=== PATIENT | male | born 2000 | race Caucasian/White ===

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

== ENCOUNTER → 2020-01-14 | Outpatient (CLI) | payer OTHER ==
[2020-01-14 19:46] LABS: BASO # 0.1 10^3/uL (0.0-0.2); BASO % 0.7 % (0.0-1.0); HEMATOCRIT 51.3 % (42.0-52.0); HEMOGLOBIN 17.5 g/dl (13.5-17.5); LYMPH # 2.3 10^3/uL (1.5-5.0); LYMPH % 33.1 % (24.0-44.0); MEAN CORPUSCULAR HEMOGLOBIN 32.1 pg (27.0-33.0); MEAN CORPUSCULAR HGB CONC 34.1 g/dl (32.0-36.5); MEAN CORPUSCULAR VOLUME 94.1 fl (80.0-96.0); MONO # 0.4 10^3/uL (0.0-0.8); NEUTROPHILS # 4.2 10^3/uL (1.5-8.5); NEUTROPHILS % 60.1 % (36.0-66.0); PLATELET COUNT, AUTOMATED 283 10^3/uL (150-450); RED BLOOD COUNT 5.45 10^6/uL (4.30-6.10)
== END ==
LOC: M WUC 15:10
PROVIDERS: ATTEND Family Medicine
DX: K05.10 Chronic gingivitis, plaque induced (principal); B37.9 Candidiasis, unspecified

== ENCOUNTER → 2020-10-01 | Outpatient (REF) | payer OTHER | LOC: M LAB REF 18:27 | PROVIDERS: ATTEND Physician Assistant | DX: R30.0 Dysuria (principal); Z20.2 Contact with and (suspected) exposure to infections with a predominantly sexual mode of transmission ==

== ENCOUNTER → 2020-10-29 | Outpatient (REF) | payer OTHER ==
[2020-10-29 20:05] LABS: GC DNA AMPLIFICATION NEGATIVE (NEGATIVE)
== END ==
LOC: M LAB REF 17:51
PROVIDERS: ATTEND Nurse Practitioner Family
DX: R30.0 Dysuria (principal); Z20.2 Contact with and (suspected) exposure to infections with a predominantly sexual mode of transmission

== ENCOUNTER → 2020-12-06 | Outpatient (REF) | payer OTHER ==
[2020-12-06 17:57] LABS: GC DNA AMPLIFICATION NEGATIVE (NEGATIVE)
== END ==
LOC: M WUC 15:37
PROVIDERS: ATTEND Physician Assistant
DX: R30.0 Dysuria (principal); N50.819 Testicular pain, unspecified

== ENCOUNTER → 2020-12-20 | Outpatient (CLI) | payer OTHER ==
--- NOTE | 2020-12-20 08:55 | REP ---
INDICATION: RT TESTICULAR PAIN COMPARISON: None. TECHNIQUE: Rodriguez scale and color Doppler evaluation using linear and curved array transducer with color Doppler evaluation. FINDINGS: The testicles and epididymi are relatively normal in contour, size, echogenicity, vascularity and overall appearance. There is no evidence for intratesticular mass lesion, infectious/inflammatory process, or torsion. No obvious hydroceles or varicoceles are identified. Right testicle measures 2.8 x 2.2 x 4.8 cm. Left testicle measures 3.3 x 2.4 x 5.2 cm. IMPRESSION: Essentially normal scrotal ultrasound. <Electronically signed by Dipesh Zhou > 12/20/20 [id number]
== END ==
LOC: M RAD 07:56
PROVIDERS: ATTEND Family Medicine
DX: N50.811 Right testicular pain (principal)

== ENCOUNTER → 2021-01-02 | Outpatient (CLI) | payer OTHER ==
--- NOTE | 2021-01-02 14:36 | REP ---
INDICATION: JUDY TESTICULAR PAIN. COMPARISON: None. TECHNIQUE: Standard helical technique without intravenous or oral bowel preparatory contrast administration FINDINGS: The lung bases are clear. Limited evaluation of the solid intra-organs and gallbladder show no abnormalities. Limited evaluation of the pancreas, adrenal glands, and kidneys show no abnormalities. Limited evaluation of the abdominal aorta and para-aortic regions show no abnormalities. Limited evaluation of the bowel loops and the mesenteries show no abnormalities. There is no free fluid or free air. There is no evidence of a mass or adenopathy. Bone window technique throughout the examination shows the osseous structures to be within normal limits. IMPRESSION: CT findings are within normal limits. <Electronically signed by Reji Kumar > 01/02/21 [id number]
== END ==
LOC: M RAD 14:01
PROVIDERS: ATTEND Family Medicine
DX: N50.811 Right testicular pain (principal); N50.812 Left testicular pain; Z98.890 Other specified postprocedural states

== ENCOUNTER → 2021-07-07 | Outpatient (REF) | payer OTHER ==
[2021-07-07 21:25] LABS: GC DNA AMPLIFICATION NEGATIVE (NEGATIVE)
== END ==
LOC: M LAB REF 19:07
PROVIDERS: ATTEND Physician Assistant
DX: R30.0 Dysuria (principal)

== ENCOUNTER → 2024-03-18 | Outpatient (REF) | payer OTHER ==
[2024-03-18 12:40] LABS: Trichomonas vaginalis (AMP) NOT DETECTED (NEGATIVE)
[2024-03-18 13:04] LABS: GC DNA AMPLIFICATION NEGATIVE (NEGATIVE)
== END ==
LOC: M LAB REF 10:21
PROVIDERS: ATTEND Nurse Practitioner Family
DX: R30.0 Dysuria (principal); Z11.3 Encounter for screening for infections with a predominantly sexual mode of transmission

== ENCOUNTER → 2024-03-27 | Outpatient (REF) | payer OTHER | LOC: M LABWUC 09:49 | PROVIDERS: ATTEND Nurse Practitioner Family | DX: R53.83 Other fatigue (principal); Z11.3 Encounter for screening for infections with a predominantly sexual mode of transmission ==

== ENCOUNTER → 2024-04-06 | Outpatient (CLI) | payer SELFPAY ==
[2024-04-07 13:37] LABS: HSV 2 IGG TYPE SPECIFIC < 0.90 index (<0.90)
== END ==
LOC: M WUC 08:44
PROVIDERS: ATTEND Student in an Organized Health Care Education/Training Program
DX: R53.83 Other fatigue (principal); Z11.3 Encounter for screening for infections with a predominantly sexual mode of transmission